=== PATIENT | male | born 1965 | race African-American/Black ===

== ENCOUNTER 2021-06-05 19:48 | Emergency (ER) | payer OTHER ==
[~2021-06-05] VITALS: Ht 190.5 cm; Wt 86.2 kg
[2021-06-05] MEDS: POTASSIUM CL. PREMIX PERIPHER. 50 ML IV SCH ×2 (00:16→23:15)
[2021-06-05] MEDS ORDERED: IV NS 0.9% 1,000 ML BAG IV ONE (20:00)
[2021-06-05] MEDS ORDERED: ONDANSETRON HCL/PF 4 MG/2 ML VIAL IV ONE (21:00)
[2021-06-05] MEDS ORDERED: ONDANSETRON HCL/PF 4 MG/2 ML VIAL ONE (21:13)
--- NOTE | 2021-06-05 21:14 | NUR ---
NICOLLE FROM HOME TO ER BED 13. AAOX4. NOT IN RESP DISTRESS, BRETHING EVEN AND UNLABORED. CAME IN FOR GENERALIZED WEAKNESS X 1 MONTH THAT HAS BEEN GETTING WORST. PT REPORTS THAT HE ALSO HAS BEEN FALLING BECAUSE OF THE WEAKNESS WITH LAST FALL YESTERDAY. DENIES ANY HEAD TRAUMA NOR COMPLAINING OF PAIN. NO NOTED NEURO DEFICIT. PT AMBULATED FROM RNEY TO BED. MD WAS AT THE BEDSIDE FOR EVAL. ORDERS RECEIVED, NOTED AND CARRIED OUT. IV LINE ALREADY PRESENT ON THE L HAND 20G, BLOOD DRAWN BY PHLEB.
[2021-06-05 22:00] LABS: BASOPHILS % (AUTO) 0.4 % (0.0-2.0); HEMATOCRIT 29 % (39-51); HEMOGLOBIN 10.2 g/dL (13.5-17.5); LYMPHOCYTES # (AUTO) 0.7 K/uL (0.8-4.8); LYMPHOCYTES % (AUTO) 8.4 % (20.0-44.0); MEAN CORPUSCULAR HGB CONC 35 g/dl (31.0-36.0); MEAN CORPUSCULAR VOLUME 109 fL (80-96); MONOCYTES # (AUTO) 1.5 K/uL (0.1-1.30); MONOCYTES % (AUTO) 18.1 % (2.0-12.0); NEUTROPHILS # (AUTO) 6.1 K/uL (1.8-8.9); NEUTROPHILS % (AUTO) 73.1 % (43.0-81.0); PLATELET COUNT (AUTO) 268 K/uL (150-450); WHITE BLOOD COUNT (AUTO) 8.4 K/uL (4.3-11.0)
[2021-06-05 22:07] LABS: CALCIUM, SERUM 8.6 mg/dL (8.5-10.1); CREATININE 2.1 mg/dL (0.6-1.3)
[2021-06-05 22:08] LABS: POTASSIUM 2.6 mmol/L (3.5-5.1)
[2021-06-05 22:22] LABS: BAND % (MANUAL) 7 % (0.0-5.0); LYMPHOCYTES % (MANUAL) 9 % (16-48); MONOCYTES % (MANUAL) 14 % (0-11.0); NEUTROPHILS % (MANUAL) 70 (42-76)
[2021-06-05] MEDS ORDERED: POTASSIUM CHLORIDE 20 MEQ TAB.PRT.SR PO ONE ×2 (22:30→22:38)
[2021-06-05] MEDS ORDERED: POTASSIUM CL. PREMIX PERIPHER. 100 ML ONE (22:37)
--- NOTE | 2021-06-05 23:55 | NUR ---
CL;INICALS FAXED TO [facility]
--- NOTE | 2021-06-06 01:12 | NUR ---
PT ACCEPTED TO [facility] UNDER THE CARE OF DR. SUNSHINE. ROOM 1208-2 CALL [phone] FOR REPORT.
--- NOTE | 2021-06-06 01:13 | NUR ---
WILL CALL BACK FOR TRANSPORT ETA
--- NOTE | 2021-06-06 03:38 | NUR ---
PER CALLTHECAR, 0530 IS ETA FOR PICKUP VIA [facility].
--- NOTE | 2021-06-06 03:46 | NUR ---
REPORT GIVEN TO GENIE JIM FOR [facility] AT THE [facility]
[2021-06-06 05:10] VITALS: BP 105/61
--- NOTE | 2021-06-06 05:50 | NUR ---
[facility] AT BEDSIDE FOR PT TRANSPORT TO [facility]. PT IS IN STABLE CONDITION FOR TRANSPORT. NAD NOTED. REPORT GIVEN TO EMT.
== END 2021-06-06 05:53 | disposition short-term general hospital (02) ==
LOC: ER 19:50
DX: S32.019A Unspecified fracture of first lumbar vertebra, initial encounter for closed fracture (principal); W19.XXXA Unspecified fall, initial encounter; Y92.89 Other specified places as the place of occurrence of the external cause; E87.6 Hypokalemia; I48.91 Unspecified atrial fibrillation; Z20.822 Contact with and (suspected) exposure to COVID-19; M85.821 Other specified disorders of bone density and structure, right upper arm; I10 Essential (primary) hypertension; Z88.2 Allergy status to sulfonamides; R29.6 Repeated falls; D64.9 Anemia, unspecified; S40.022A Contusion of left upper arm, initial encounter; S40.021A Contusion of right upper arm, initial encounter
CPT/HCPCS: 36415; 70450; 71045; 71250; 72125; 73060 ×2; 73090 ×2; 74176; 80048; 83735; 84484; 85007; 85025; 87426; 93005; 96361; 96365; 96366; 96375; 99285; C9803; J2405; J3480; J7030 ×2